=== PATIENT | female | born 1980 | race Caucasian/White ===

== ENCOUNTER 2018-11-04 16:28 | Observation (INO) | payer OTHER ==
[2018-11-04] MEDS ORDERED: LACTATED RINGERS 1,000 ML IV SCH (17:00)
--- NOTE | 2018-11-04 19:53 | Ultrasound Report ---
ULTRASOUND BIOPHYSICAL PROFILE INDICATION: well being. COMPARISON: Limited OB ultrasound same day FINDINGS: BREATHING MOVEMENT = 2 GROSS BODY MOVEMENT = 2 TONE = 2 QUALITATIVE AMNIOTIC FLUID VOLUME = 2 TOTAL BIOPHYSICAL SCORE = 12/01 AMNIOTIC FLUID INDEX (cm) = 9.2 PRESENTATION: Cephalic. HEART RATE (beats per minute): 178 IMPRESSION: 1. biophysical profile = 12/01 Signer Name: Josemanuel Sanchez MD Signed: 11/04/2018 7:49 PM Workstation Name: [email or web address]
--- NOTE | 2018-11-04 20:07 | Ultrasound Report ---
ULTRASOUND OBSTETRIC limited third trimester INDICATION / CLINICAL INFORMATION: EZEQUIEL. TECHNIQUE: Transabdominal. COMPARISON: None available. FINDINGS: There is a single intrauterine . Heart Rate: 178 beats per minute. Position: cephalic. Placenta: Fundal and free of the os. Amniotic Fluid Volume: normal Amniotic Fluid Index (EZEQUIEL) in cm (if calculated): 9.2. Maternal Adnexa: Not visualized IMPRESSION: 1. Single, living intrauterine with normal EZEQUIEL Signer Name: Josemanuel Sanchez MD Signed: 11/04/2018 8:02 PM Workstation Name: [facility]
[2018-11-04 20:23] LABS: Hematocrit 33.8 % (30.3-42.9); Hemoglobin 11.2 gm/dl (10.1-14.3); Mean Corpuscular HGB Conc 33 % (30-34); Mean Corpuscular Volume 83 fl (79-97); Platelet Count 150 K/mm3 (140-440); Red Blood Count 4.09 M/mm3 (3.65-5.03); Red Cell Distribution Width 16.2 % (13.2-15.2)
--- NOTE | 2018-11-04 21:04 | History and Physical Report ---
History of Present Illness Date of examination: 11/04/18 Date of admission: 11/04/18 19:15 Chief complaint: Sent from office for observation due to tachycardia. History of present illness: 38 year old sent from office to L&D for observation due to tachycardia. Patient reports active movement. Patient denies vaginal bleeding, leaking of fluid, or foul smelling discharge. Patient reports cough for past 4 days. Denies chest pain or shortness of breath. Patient received care at [facility] and records are available. LMP 02/15/18. EDC 11/22/18. significant for the following: Advanced maternal age (normal quad screen), anemia (supplemented with iron), rubella nonimmune, previous section, gestational diabetes (diet controlled), GBS positive. labs are as follows: O+, antibody screen negative, rubella non-immune, RPR nonreactive, HIV negative, hepatitis B surface antigen negative, hemoglobin electrophoresis AA, chlamydia negative, gonorrhea negative, quad screen negative, 1 hour sugar test 179, 3 hour OGTT 100/206/166/153, GBS positive. Past History Past Medical History: no pertinent history Past Surgical History: section, other (left salpingectomy) [employer] History: denies: chlamydia, gonorrhea, hepatitis B, hepatitis C, herpes, HIV, syphilis, trichomonas Family/Genetic History: diabetes Social history: lives with family, full code. denies: smoking, alcohol abuse, prescription drug abuse, IV drug use - Obstetrical History Expected Date of Delivery: 11/22/18 Actual Gestation: 37 Week(s) 3 Day(s) : 2 Para: 1 Hx # Term Pregnancies: 1 Number of Pregnancies: 0 Spontaneous Abortions: 0 Induced : 0 Number of Living Children: 1 Medications and Allergies Allergies Allergy/AdvReac Type Severity Reaction Status Date / Time No Known Allergies Allergy Verified 11/04/18 16:49 Active Meds: Active Medications Lactated Ringer's (Lactated Ringers) 1,000 mls @ 150 mls/hr IV DIRECT SAADIA Review of Systems All systems: negative (cough for past 4 days) - Vital Signs Vital signs: Vital Signs Temp Pulse Resp BP 98.7 F 116 H 18 124/69 11/04/18 17:31 11/04/18 17:31 11/04/18 17:31 11/04/18 17:31 Temp Pulse Resp BP Pulse Ox 98.7 F 130 H 18 119/63 11/04/18 17:31 11/04/18 20:50 11/04/18 17:31 11/04/18 20:50 BPP 8/8 - Physical Exam Cardiovascular: Regular rate, Normal S1, Normal S2 Lungs: Positive: Clear to auscultation Abdomen: Positive: normal appearance, soft, tenderness (bilateral lower quadrants mild tenderness), normal bowel sounds. Negative: distention, guarding , rigidity Genitourinary (Female): Positive: normal external genitalia, normal perenium. Negative: perineal/vulvar lesions Vagina: Positive: normal moisture Uterus: Positive: enlarged Anus/Rectum: Positive: normal perianal skin Extremities: Positive: normal. Negative: tenderness, edema - Obstetrical FHR: category 2 FHR comments: tachycardia Uterine Contraction Monitor Mode: External Cervical Dilatation: 0.5 Cervical Effacement Percentage: 40 station: -3 Uterine Contraction Pattern: Irregular Uterine Contraction Intensity: Mild Results Result Diagrams: 11/04/18 19:52 11/04/18 20:47 Abnormal lab results 11/04/18 Range/Units 19:52 WBC 12.8 H (4.5-11.0) K/mm3 MCH 27 L (28-32) pg RDW 16.2 H (13.2-15.2) % All other labs normal. Assessment and Plan A: at 37 weeks, 3 days gestation. tachycardia. Maternal tachycardia. GBS positive. History of previous section. P: Admit. Labs. Continuous EFM. Consulted with Dr. Meadows re: this patient. Dr. Meadows requests that hospitalist see the patient re: maternal tachycardia. Reviewed labs and FHR tracing with Dr. Meadows. Hospitalist consult put in.
[2018-11-04 21:13] LABS: Basophils % (Manual) 0 % (0.0-1.8); Eosinophils % (Manual) 0 % (0.0-4.3); RBC Morphology Normal; Total Cells Counted 100
[2018-11-04 21:34] LABS: Alanine Aminotransferase 7 units/L (7-56); Albumin 3.4 g/dL (3.9-5); BUN/Creatinine Ratio 13; Blood Urea Nitrogen 5 mg/dL (7-17); Calcium 8.8 mg/dL (8.4-10.2); Hemolysis Index 4
[2018-11-04] MEDS ORDERED: LOPRESSOR PO SCH (23:00)
--- NOTE | 2018-11-04 23:49 | Consultation ---
<FELIZ WOODRUFF - Last Filed: 11/05/18 06:59> History of Present Illness - Reason for Consult Consult date: 11/04/18 Tachycardia evaluation Requesting physician: DAYA SIMMONS - History of Present Illness Pt is a 38 year old who was sent to the hospital by her OB for observation due to tachycardia. Patient heart rate was also found to be elevated on admission. She reports cough for past 4 day, sore thoat, she denies any fever or chills, denies chest pain, denies diaphoresis, denies nausea, denies vomiting. Pt denies reports active movement, denies vaginal bleeding, denies leaking of fluid, denies abdominal pain, denies SOB. Pt states that has been following with with [facility] and had received care. Pt was seen in bed A&O, mild distress due to , no SOB was note, no c/o pain or discomfort except for sore throat. Past History Past Medical History: No medical history, diabetes (Gestational diabetes) Past Surgical History: (prior ) Social history: no significant social history, lives with family, full code Family history: no significant family history Medications and Allergies Allergies Allergy/AdvReac Type Severity Reaction Status Date / Time No Known Allergies Allergy Verified 11/09/18 16:47 Active Meds: Active Medications Benzonatate (Tessalon Perles) 100 mg PO Q8HR SAADIA Lactated Ringer's (Lactated Ringers) 1,000 mls @ 150 mls/hr IV DIRECT SAADIA Last Admin: 11/04/18 21:00 Dose: 125 mls/hr Documented by: Metoprolol Tartrate (Lopressor) 25 mg PO BID SAADIA Review of Systems All systems: negative Exam - Constitutional Vitals: Temp Pulse Resp BP Pulse Ox 98.7 F 126 H 18 119/64 11/04/18 17:31 11/04/18 22:51 11/04/18 17:31 11/04/18 22:51 General appearance: Present: no acute distress - EENT ENT: hearing intact - Neck Neck: Present: normal ROM - Respiratory Respiratory effort: normal Respiratory: bilateral: CTA - Cardiovascular Rhythm: regular Heart Sounds: Present: S1 & S2 - Extremities Extremities: no ischemia, No edema Peripheral Pulses: within normal limits - Abdominal General gastrointestinal: Present: non-tender, other (37 weeks 3 days and intauterine ) - Rectal Rectal Exam: deferred Results - Labs CBC & Chem 7: 11/04/18 19:52 11/04/18 20:47 Labs: Abnormal lab results 11/04/18 11/04/18 Range/Units 19:52 20:47 WBC 12.8 H (4.5-11.0) K/mm3 MCH 27 L (28-32) pg RDW 16.2 H (13.2-15.2) % Seg Neuts % (Manual) 71.0 H (40.0-70.0) % Monocytes % (Manual) 13.0 H (0.0-7.3) % Seg Neutrophils # Man 9.1 H (1.8-7.7) K/mm3 Monocytes # (Manual) 1.7 H (0.0-0.8) K/mm3 Potassium 3.5 L (3.6-5.0) mmol/L Carbon Dioxide 20 L (22-30) mmol/L BUN 5 L (7-17) mg/dL Creatinine 0.4 L (0.7-1.2) mg/dL Glucose 152 H (65-100) mg/dL Total Protein 6.1 L (6.3-8.2) g/dL Albumin 3.4 L (3.9-5) g/dL Assessment and Plan 1. 37 weeks 3 days IUP 2. tachycardia 3. Maternal tachycardia 4. Acute cough 5. h/o Previous 6. Possible dehydration Plan: TSH was reviewed WNL IV fluid for hydration Tessalon perle for cough Lopressor 25 twice a day for tachycardia Continue to monitor heart rate Further recommendation based on hospital course <GLORIA SHERWOOD - Last Filed: 11/18/18 18:56> Exam - Constitutional Vitals: Temp Pulse Resp BP Pulse Ox 98.9 F 116 H 20 126/75 11/05/18 18:30 11/05/18 17:44 11/05/18 18:30 11/05/18 17:44 Results - Labs CBC & Chem 7: 11/04/18 19:52 11/04/18 20:47 Assessment and Plan I personally discussed the patient with the LEAD TELLER-C. I agree with the above documentations
[2018-11-05] MEDS: TESSALON PERLES PO SCH ×2 (00:57→07:58)
[2018-11-05 11:28] LABS: Bacteria,Urine 2+ /HPF (Negative); Bilirubin,Urine NEG (Negative); Blood,Urine NEG (Negative); Color,Urine Straw (Yellow); Mucus,Urine FEW /HPF; Protein,Urine <15 mg/dL mg/dL (Negative); Urobilinogen,Urine < 2.0 mg/dL (<2.0)
--- NOTE | 2018-11-05 11:36 | Progress Note ---
Assessment and Plan Assessment and plan: 1. 37 weeks 3 days IUP 2. tachycardia 3. Maternal tachycardia 4. Acute cough 5. h/o Previous 6. Possible dehydration Plan: Check echocardiogram. TSH was reviewed WNL Consider checking d-dimer levels and cardiology consultation if tachycardia worsens. IV fluid for hydration Tessalon perle for cough Continued Lopressor 25 twice a day for tachycardia Continue to monitor heart rate Further recommendation based on hospital course History Interval history: No new issues overnight. Patient denies chest pain. Hospitalist Physical - Constitutional Vitals: Temp Pulse Resp BP Pulse Ox 98.7 F 110 H 18 114/59 11/04/18 17:31 11/05/18 10:46 11/04/18 17:31 11/05/18 10:46 General appearance: Present: no acute distress - EENT Eyes: Present: PERRL, EOM intact ENT: hearing intact, clear oral mucosa, dentition normal - Neck Neck: Present: supple, normal ROM - Respiratory Respiratory effort: normal Respiratory: bilateral: CTA - Cardiovascular Rhythm: regular Heart Sounds: Present: S1 & S2. Absent: gallop, rub - Extremities Extremities: no ischemia, No edema, Full ROM - Abdominal General gastrointestinal: soft, non-tender, non-distended, normal bowel sounds - Integumentary Integumentary: Present: clear, warm, dry - Neurologic Neurologic: CNII-XII intact, moves all extremities Results - Labs CBC & Chem 7: 11/04/18 19:52 11/04/18 20:47 Labs: Laboratory Last Values WBC 12.8 K/mm3 (4.5-11.0) H 11/04/18 19:52 RBC 4.09 M/mm3 (3.65-5.03) 11/04/18 19:52 Hgb 11.2 gm/dl (10.1-14.3) 11/04/18 19:52 Hct 33.8 % (30.3-42.9) 11/04/18 19:52 MCV 83 fl (79-97) 11/04/18 19:52 MCH 27 pg (28-32) L 11/04/18 19:52 MCHC 33 % (30-34) 11/04/18 19:52 RDW 16.2 % (13.2-15.2) H 07/12/19 19:52 Plt Count 150 K/mm3 (140-440) 11/04/18 19:52 Add Manual Diff Complete 11/04/18 19:52 Total Counted 100 11/04/18 19:52 Seg Neuts % (Manual) 71.0 % (40.0-70.0) H 11/04/18 19:52 0 % 11/04/18 19:52 16.0 % (13.4-35.0) 11/04/18 19:52 Reactive Lymphs % (Man) 0 % 11/04/18 19:52 13.0 % (0.0-7.3) H 11/04/18 19:52 0 % (0.0-4.3) 11/04/18 19:52 0 % (0.0-1.8) 11/04/18 19:52 0 % 11/04/18 19:52 0 % 11/04/18 19:52 0 % 11/04/18 19:52 0 % 11/04/18 19:52 Nucleated RBC % Not Reportable 11/04/18 19:52 Seg Neutrophils # Man 9.1 K/mm3 (1.8-7.7) H 11/04/18 19:52 Band Neutrophils # 0.0 K/mm3 11/04/18 19:52 2.0 K/mm3 (1.2-5.4) 11/04/18 19:52 Abs React Lymphs (Man) 0.0 K/mm3 11/04/18 19:52 1.7 K/mm3 (0.0-0.8) H 11/04/18 19:52 0.0 K/mm3 (0.0-0.4) 11/04/18 19:52 0.0 K/mm3 (0.0-0.1) 11/04/18 19:52 0.0 K/mm3 11/04/18 19:52 0.0 K/mm3 11/04/18 19:52 0.0 K/mm3 11/04/18 19:52 Blast Cells # 0.0 K/mm3 11/04/18 19:52 WBC Morphology Not Reportable 11/04/18 19:52 Hypersegmented Neuts Not Reportable 11/04/18 19:52 Hyposegmented Neuts Not Reportable 11/04/18 19:52 Hypogranular Neuts Not Reportable 11/04/18 19:52 Not Reportable 11/04/18 19:52 Not Reportable 11/04/18 19:52 Not Reportable 11/04/18 19:52 Not Reportable 11/04/18 19:52 Not Reportable 11/04/18 19:52 Not Reportable 11/04/18 19:52 Not Reportable 11/04/18 19:52 Not Reportable 11/04/18 19:52 Plt Clumps, EDTA Not Reportable 11/04/18 19:52 Not Reportable 11/04/18 19:52 Not Reportable 11/04/18 19:52 Not Reportable 11/04/18 19:52 Plt Morphology Comment Not Reportable 11/04/18 19:52 RBC Morphology Normal 11/04/18 19:52 Dimorphic RBCs Not Reportable 11/04/18 19:52 Not Reportable 11/04/18 19:52 Not Reportable 11/04/18 19:52 Not Reportable 11/04/18 19:52 Not Reportable 11/04/18 19:52 Not Reportable 11/04/18 19:52 Not Reportable 11/04/18 19:52 Not Reportable 11/04/18 19:52 Not Reportable 11/04/18 19:52 Not Reportable 11/04/18 19:52 Not Reportable 11/04/18 19:52 Not Reportable 11/04/18 19:52 Not Reportable 11/04/18 19:52 Not Reportable 11/04/18 19:52 Not Reportable 11/04/18 19:52 Not Reportable 11/04/18 19:52 Not Reportable 11/04/18 19:52 Not Reportable 11/04/18 19:52 Not Reportable 11/04/18 19:52 Not Reportable 11/04/18 19:52 Acanthocytes (Spur) Not Reportable 11/04/18 19:52 Rouleaux Not Reportable 11/04/18 19:52 Not Reportable 11/04/18 19:52 Not Reportable 11/04/18 19:52 Not Reportable 11/04/18 19:52 Not Reportable 11/04/18 19:52 Hem Pathologist Commnt No 11/04/18 19:52 Sodium 139 mmol/L (137-145) 11/04/18 20:47 Potassium 3.5 mmol/L (3.6-5.0) L 11/04/18 20:47 Chloride 105.4 mmol/L (98-107) 11/04/18 20:47 Carbon Dioxide 20 mmol/L (22-30) L 11/04/18 20:47 17 mmol/L 11/04/18 20:47 BUN 5 mg/dL (7-17) L 11/04/18 20:47 0.4 mg/dL (0.7-1.2) L 11/04/18 20:47 Estimated GFR > 60 ml/min 11/04/18 20:47 13 % 11/04/18 20:47 Glucose 152 mg/dL (65-100) H 11/04/18 20:47 5.2 % (4-6) 11/04/18 20:53 Calcium 8.8 mg/dL (8.4-10.2) 11/04/18 20:47 0.40 mg/dL (0.1-1.2) 11/04/18 20:47 AST 13 units/L (5-40) 11/04/18 20:47 ALT 7 units/L (7-56) 11/04/18 20:47 86 units/L (35-129) 11/04/18 20:47 6.1 g/dL (6.3-8.2) L 11/04/18 20:47 3.4 g/dL (3.9-5) L 11/04/18 20:47 1.3 % 11/04/18 20:47 TSH 1.680 mlU/mL (0.270-4.200) 11/04/18 20:53 Free T4 1.10 ng/dL (0.76-1.46) 11/04/18 20:53 Straw (Yellow) 11/05/18 11:04 Clear (Clear) 11/05/18 11:04 7.0 (5.0-7.0) 11/05/18 11:04 Ur Specific [place] 1.009 (1.003-1.030) 11/05/18 11:04 <15 mg/dl mg/dL (Negative) 11/05/18 11:04 Neg mg/dL (Negative) 11/05/18 11:04 20 mg/dL (Negative) 11/05/18 11:04 Neg (Negative) 11/05/18 11:04 Neg (Negative) 11/05/18 11:04 Neg (Negative) 11/05/18 11:04 < 2.0 mg/dL (<2.0) 11/05/18 11:04 Ur Leukocyte Esterase Tr (Negative) 11/05/18 11:04 1.0 /HPF (0.0-6.0) 11/05/18 11:04 3.0 /HPF (0.0-6.0) 11/05/18 11:04 U Epithel Cells (Auto) 1.0 /HPF (0-13.0) 11/05/18 11:04 2+ /HPF (Negative) 11/05/18 11:04 Few /HPF 11/05/18 11:04 Blood Type O POSITIVE 11/04/18 19:52 Antibody Screen Negative 11/04/18 19:52 Active Medications - Current Medications Current Medications: Generic Name Dose Route Start Last Admin Trade Name Daleq PRN Reason Stop Dose Admin Benzonatate 100 mg 11/04/18 23:00 11/05/18 07:58 Tessalon Perles PO 100 mg Q8HR SAADIA Administration Lactated Ringer's 1,000 mls @ 150 mls/hr 11/04/18 17:00 11/04/18 21:00 Lactated Ringers IV 125 mls/hr DIRECT SAADIA Administration Metoprolol Tartrate 25 mg 11/04/18 23:00 11/05/18 00:58 Lopressor PO 25 mg BID SAADIA Administration
[2018-11-05 11:38] LABS: Amphetamine Screen,Urine PRESUMPTIVE NEGATIVE; Benzodiazepines Screen,Urine PRESUMPTIVE NEGATIVE; Cannabinoid Screen,Urine PRESUMPTIVE NEGATIVE; Cocaine Screen,Urine PRESUMPTIVE NEGATIVE; Methadone Screen,Urine PRESUMPTIVE NEGATIVE; Opiate Screen,Urine PRESUMPTIVE NEGATIVE
--- NOTE | 2018-11-05 12:01 | Progress Note ---
Assessment and Plan A: at 37 4/7 weeks gestation. Maternal tachycardia. tachycardia resolved (Category 1 heart rate tracing). P: EKG, d-dimer, cardiology consult. Consulted with Dr. Meadows re: this patient and he states he is in agreement with above plan of care. Subjective - Subjective Date of service: 11/05/18 Principal diagnosis: at 37 4/7 weeks gestation; maternal and tachycardia Interval history: Patient was observed overnight due to maternal and tachycardia. tachycardia has resolved. Maternal heart rate is in low hundreds now (was 120- 130 last night). Patient reports active movement. Patient denies vaginal bleeding, leaking of fluid, or regular contractions. Being followed by hospitalist who recommended EKG, d-dimer, and cardiology consult. These are pending currently. Patient reports: movement normal, contractions, no new complaints, no loss of fluid, no vaginal bleeding Objective - Vital Signs Vital Signs: Vital Signs - 12hr 11/05/18 11/05/18 11/05/18 00:50 00:58 01:50 Temperature Pulse Rate 109 H 109 H 96 H Respiratory Rate Blood Pressure 107/62 107/62 110/70 11/05/18 11/05/18 11/05/18 02:50 03:50 04:50 Temperature Pulse Rate 95 H 97 H 97 H Respiratory Rate Blood Pressure 99/54 110/66 102/55 11/05/18 11/05/18 11/05/18 07:46 07:48 08:46 Temperature 97.9 F Pulse Rate 100 H 102 H Respiratory 18 Rate Blood Pressure 117/65 119/69 11/05/18 11/05/18 11/05/18 09:46 10:46 11:46 Temperature Pulse Rate 112 H 110 H 110 H Respiratory Rate Blood Pressure 118/65 114/59 106/60 - Exam Cardiovascular: Regular rate, Normal S1, Normal S2 Lungs: Clear to auscultation Abdomen: Present: normal appearance, soft. Absent: distention, tenderness, guarding, rigidity Uterus: Present: fundal height above umbilicus FHR: category 1 Uterine Contraction Monitor Mode: External Uterine Contraction Pattern: Irregular Uterine Contraction Intensity: Mild Extremities: normal - Labs Labs: Abnormal Labs 11/04/18 11/04/18 19:52 20:47 WBC 12.8 H MCH 27 L RDW 16.2 H Seg Neuts % (Manual) 71.0 H Monocytes % (Manual) 13.0 H Seg Neutrophils # Man 9.1 H Monocytes # (Manual) 1.7 H Potassium 3.5 L Carbon Dioxide 20 L BUN 5 L Creatinine 0.4 L Glucose 152 H Total Protein 6.1 L Albumin 3.4 L Laboratory Results - last 24 hr 11/04/18 11/04/18 11/04/18 19:52 19:52 20:47 WBC 12.8 H RBC 4.09 Hgb 11.2 Hct 33.8 MCV 83 MCH 27 L MCHC 33 RDW 16.2 H Plt Count 150 Add Manual Diff Complete Total Counted 100 Seg Neuts % (Manual) 71.0 H Band Neutrophils % 0 Lymphocytes % (Manual) 16.0 Reactive Lymphs % (Man) 0 Monocytes % (Manual) 13.0 H Eosinophils % (Manual) 0 Basophils % (Manual) 0 Metamyelocytes % 0 Myelocytes % 0 Promyelocytes % 0 Blast Cells % 0 Nucleated RBC % Not Reportable Seg Neutrophils # Man 9.1 H Band Neutrophils # 0.0 Lymphocytes # (Manual) 2.0 Abs React Lymphs (Man) 0.0 Monocytes # (Manual) 1.7 H Eosinophils # (Manual) 0.0 Basophils # (Manual) 0.0 Metamyelocytes # 0.0 Myelocytes # 0.0 Promyelocytes # 0.0 Blast Cells # 0.0 WBC Morphology Not Reportable Hypersegmented Neuts Not Reportable Hyposegmented Neuts Not Reportable Hypogranular Neuts Not Reportable Smudge Cells Not Reportable Toxic Granulation Not Reportable Toxic Vacuolation Not Reportable Dohle Bodies Not Reportable Pelger-Huet Anomaly Not Reportable Susan Rods Not Reportable Platelet Estimate Not Reportable Clumped Platelets Not Reportable Plt Clumps, EDTA Not Reportable Large Platelets Not Reportable Giant Platelets Not Reportable Platelet Satelliting Not Reportable Plt Morphology Comment Not Reportable RBC Morphology Normal Dimorphic RBCs Not Reportable Polychromasia Not Reportable Hypochromasia Not Reportable Poikilocytosis Not Reportable Anisocytosis Not Reportable Microcytosis Not Reportable Macrocytosis Not Reportable Spherocytes Not Reportable Pappenheimer Bodies Not Reportable Sickle Cells Not Reportable Target Cells Not Reportable Tear Drop Cells Not Reportable Ovalocytes Not Reportable Helmet Cells Not Reportable Diaz-Leslie Bodies Not Reportable [place] Rings Not Reportable Germaine Cells Not Reportable Bite Cells Not Reportable Crenated Cell Not Reportable Elliptocytes Not Reportable Acanthocytes (Spur) Not Reportable Rouleaux Not Reportable Hemoglobin C Crystals Not Reportable Schistocytes Not Reportable Malaria parasites Not Reportable Alfonso Bodies Not Reportable Hem Pathologist Commnt No Sodium 139 Potassium 3.5 L Chloride 105.4 Carbon Dioxide 20 L Anion Gap 17 BUN 5 L Creatinine 0.4 L Estimated GFR > 60 BUN/Creatinine Ratio 13 Glucose 152 H Hemoglobin A1c Calcium 8.8 Total Bilirubin 0.40 AST 13 ALT 7 Alkaline Phosphatase 86 Total Protein 6.1 L Albumin 3.4 L Albumin/Globulin Ratio 1.3 TSH Free T4 Urine Color Urine Turbidity Urine pH Ur Specific [place] Urine Protein Urine Glucose (UA) Urine Ketones Urine Blood Urine Nitrite Urine Bilirubin Urine Urobilinogen Ur Leukocyte Esterase Urine WBC (Auto) Urine RBC (Auto) U Epithel Cells (Auto) Urine Bacteria (Auto) Urine Mucus Urine Opiates Screen Urine Methadone Screen Ur Barbiturates Screen Ur Phencyclidine Scrn Ur Amphetamines Screen U Benzodiazepines Scrn Urine Cocaine Screen U Marijuana (THC) Screen Drugs of Abuse Note Blood Type O POSITIVE Antibody Screen Negative 11/04/18 11/04/18 11/04/18 20:53 20:53 20:53 WBC RBC Hgb Hct MCV MCH MCHC RDW Plt Count Add Manual Diff Total Counted Seg Neuts % (Manual) Band Neutrophils % Lymphocytes % (Manual) Reactive Lymphs % (Man) Monocytes % (Manual) Eosinophils % (Manual) Basophils % (Manual) Metamyelocytes % Myelocytes % Promyelocytes % Blast Cells % Nucleated RBC % Seg Neutrophils # Man Band Neutrophils # Lymphocytes # (Manual) Abs React Lymphs (Man) Monocytes # (Manual) Eosinophils # (Manual) Basophils # (Manual) Metamyelocytes # Myelocytes # Promyelocytes # Blast Cells # WBC Morphology Hypersegmented Neuts Hyposegmented Neuts Hypogranular Neuts Smudge Cells Toxic Granulation Toxic Vacuolation Dohle Bodies Pelger-Huet Anomaly Susan Rods Platelet Estimate Clumped Platelets Plt Clumps, EDTA Large Platelets Giant Platelets Platelet Satelliting Plt Morphology Comment RBC Morphology Dimorphic RBCs Polychromasia Hypochromasia Poikilocytosis Anisocytosis Microcytosis Macrocytosis Spherocytes Pappenheimer Bodies Sickle Cells Target Cells Tear Drop Cells Ovalocytes Helmet Cells Diaz-Leslie Bodies [place] Rings [place] Cells Bite Cells Crenated Cell Elliptocytes Acanthocytes (Spur) Rouleaux Hemoglobin C Crystals Schistocytes Malaria parasites Alfonso Bodies Hem Pathologist Commnt Sodium Potassium Chloride Carbon Dioxide Anion Gap BUN Creatinine Estimated GFR BUN/Creatinine Ratio Glucose Hemoglobin A1c 5.2 Calcium Total Bilirubin AST ALT Alkaline Phosphatase Total Protein Albumin Albumin/Globulin Ratio TSH 1.680 Free T4 1.10 Urine Color Urine Turbidity Urine pH Ur Specific [place] Urine Protein Urine Glucose (UA) Urine Ketones Urine Blood Urine Nitrite Urine Bilirubin Urine Urobilinogen Ur Leukocyte Esterase Urine WBC (Auto) Urine RBC (Auto) U Epithel Cells (Auto) Urine Bacteria (Auto) Urine Mucus Urine Opiates Screen Urine Methadone Screen Ur Barbiturates Screen Ur Phencyclidine Scrn Ur Amphetamines Screen U Benzodiazepines Scrn Urine Cocaine Screen U Marijuana (THC) Screen Drugs of Abuse Note Blood Type Antibody Screen 11/05/18 11/05/18 11:04 11:04 WBC RBC Hgb Hct MCV MCH MCHC RDW Plt Count Add Manual Diff Total Counted Seg Neuts % (Manual) Band Neutrophils % Lymphocytes % (Manual) Reactive Lymphs % (Man) Monocytes % (Manual) Eosinophils % (Manual) Basophils % (Manual) Metamyelocytes % Myelocytes % Promyelocytes % Blast Cells % Nucleated RBC % Seg Neutrophils # Man Band Neutrophils # Lymphocytes # (Manual) Abs React Lymphs (Man) Monocytes # (Manual) Eosinophils # (Manual) Basophils # (Manual) Metamyelocytes # Myelocytes # Promyelocytes # Blast Cells # WBC Morphology Hypersegmented Neuts Hyposegmented Neuts Hypogranular Neuts Smudge Cells Toxic Granulation Toxic Vacuolation Dohle Bodies Pelger-Huet Anomaly Susan Rods Platelet Estimate Clumped Platelets Plt Clumps, EDTA Large Platelets Giant Platelets Platelet Satelliting Plt Morphology Comment RBC Morphology Dimorphic RBCs Polychromasia Hypochromasia Poikilocytosis Anisocytosis Microcytosis Macrocytosis Spherocytes Pappenheimer Bodies Sickle Cells Target Cells Tear Drop Cells Ovalocytes Helmet Cells Diaz-Leslie Bodies [place] Rings Germaine Cells Bite Cells Crenated Cell Elliptocytes Acanthocytes (Spur) Rouleaux Hemoglobin C Crystals Schistocytes Malaria parasites Alfonso Bodies Hem Pathologist Commnt Sodium Potassium Chloride Carbon Dioxide Anion Gap BUN Creatinine Estimated GFR BUN/Creatinine Ratio Glucose Hemoglobin A1c Calcium Total Bilirubin AST ALT Alkaline Phosphatase Total Protein Albumin Albumin/Globulin Ratio TSH Free T4 Urine Color Straw Urine Turbidity Clear Urine pH 7.0 Ur Specific [place] 1.009 Urine Protein <15 mg/dl Urine Glucose (UA) Neg Urine Ketones 20 Urine Blood Neg Urine Nitrite Neg Urine Bilirubin Neg Urine Urobilinogen < 2.0 Ur Leukocyte Esterase Tr Urine WBC (Auto) 1.0 Urine RBC (Auto) 3.0 U Epithel Cells (Auto) 1.0 Urine Bacteria (Auto) 2+ Urine Mucus Few Urine Opiates Screen Presumptive negative Urine Methadone Screen Presumptive negative Ur Barbiturates Screen Presumptive negative Ur Phencyclidine Scrn Presumptive negative Ur Amphetamines Screen Presumptive negative U Benzodiazepines Scrn Presumptive negative Urine Cocaine Screen Presumptive negative U Marijuana (THC) Screen Presumptive negative Drugs of Abuse Note Disclamer Blood Type Antibody Screen
[2018-11-05 17:44] VITALS: BP 126/75
--- NOTE | 2018-11-05 18:10 | Event Note ---
Date: 11/05/18 Patient, at 37+4wks, was brought into the hospital yesterday from the office for tachycardia seen on office NST. Patient herself was doing well and had no complaints. Saw patient today. She remained asymptomatic. She denied shortness of breath, chest pain, coughing, pains in any other body parts including the lower limbs.She denied contractions, vaginal bleeding or leakage of fluids. Her fetus if active. O/E: heart rate now has a baseline rate of 145 bpm. Mom's heart rate is between 110 and 126 bpm. BPP yesterday was 12/01. IMP: tach has resolved. Maternal heart rate is within range for third trimester. Hospitalist's recommendations were noted. D dimer testing is unreliable in and likely to add more clarity to the present status. With an asymptomatic mother and reactive fetus there appears to be no need for further investigations. Plan: Patient was cautioned to report shortness of breath, chest and body pains, coughing, to follow up with both MFM and cardiology as outpatient. She was told to keep kick counts daily and to report any decreases. I discussed this case with MFM Dr. Amezcua.
== END 2018-11-05 18:40 | disposition home or self-care (01) ==
LOC: TRG 16:28 → LD 19:15
PROVIDERS: ADMIT Obstetrics & Gynecology; ATTEND Obstetrics & Gynecology
DX: O76 Abnormality in fetal heart rate and rhythm complicating labor and delivery (principal); O26.893 Other specified pregnancy related conditions, third trimester; R05 Cough; Z98.890 Other specified postprocedural states; Z3A.37 37 weeks gestation of pregnancy
CPT/HCPCS: 36415; 76815; 76819; 80053; 80307; 81001; 82962; 83036; 84439; 84443; 84480; 85007; 85025; 85379; 86850; 86900; 86901; 87086; G0378; J7120

== ENCOUNTER 2018-11-09 16:30 | Outpatient (CLI) | payer OTHER ==
[2018-11-09] MEDS ORDERED: LACTATED RINGERS 1,000 ML IV ONE (16:48)
[2018-11-09 17:03] VITALS: BP 100/55
[2018-11-09 17:15] LABS: Bacteria,Urine 2+ /HPF (Negative); Bilirubin,Urine NEG (Negative); Blood,Urine NEG (Negative); Color,Urine Yellow (Yellow); Hyaline Casts,Urine 1 /LPF; Mucus,Urine FEW /HPF; Protein,Urine <15 mg/dL mg/dL (Negative); Urobilinogen,Urine < 2.0 mg/dL (<2.0)
--- NOTE | 2018-11-09 20:03 | Ultrasound Report ---
Limited obstetrical ultrasound INDICATION: Elevated heart tones noted in office COMPARISON: 11/04/2018 Limited examination shows the intrauterine in a cephalic position. Placenta appears to be m ostly fundal as best can be a mild from these images and is free of the internal cervical os. c ardiac activity was noted with heart rate of 155 bpm. In a very limited examination no obvious abnormalities are detected. Amniotic fluid volume appears qualitatively within normal limits and EZEQUIEL is within normal limits at 11.3 cm. Biophysical profile tone: 2 breathin movements: 2 Amniotic fluid: 2 Total biophysical profile score 8/8, within normal limits Signer Name: Walker Hill MD Signed: 11/09/2018 7:58 PM Workstation Name: [id number]
== END 2018-11-09 19:20 | disposition home or self-care (01) ==
LOC: TRG 16:30
PROVIDERS: ATTEND Obstetrics & Gynecology
DX: O36.8330 Maternal care for abnormalities of the fetal heart rate or rhythm, third trimester, not applicable or unspecified (principal); O09.523 Supervision of elderly multigravida, third trimester; O47.1 False labor at or after 37 completed weeks of gestation; O24.913 Unspecified diabetes mellitus in pregnancy, third trimester; Z3A.38 38 weeks gestation of pregnancy
CPT/HCPCS: 59025; 76815; 76819; 81001; 96360; J7120

== ENCOUNTER 2018-11-16 09:16 | Inpatient (IN) | payer OTHER ==
--- NOTE | 2018-11-16 09:32 | History and Physical Report ---
History of Present Illness Date of examination: 11/16/18 Date of admission: 11/16/18 09:16 Chief complaint: SIUP at 39 weeks and 1 day gestation not in labor. Previous C/section. History of present illness: Patient is a 38 year old , LMP 02/15/18, EDC 11/22/18 at 39 weeks and 1 day gestation who was admitted for elective repeat C/section. She denies any con tractions, fluid leakage or bleeding. She reports good movement. tracing is CAT1. Patient is AMA and had abnormal GTT but declined MFM consult. She wants tubal ligation. Past History Past Medical History: other (anemia, GDM) Past Surgical History: section, other (Left salpingo-oophorectomy) Family/Genetic History: none Social history: no significant social history - Obstetrical History : 2 Para: 1 Number of Living Children: 1 Medications and Allergies Allergies Allergy/AdvReac Type Severity Reaction Status Date / Time No Known Allergies Allergy Verified 11/09/18 16:47 Home Medications Medication Instructions Recorded Confirmed Last Taken Type Vit-Fe Fumar-FA [ 1 tab PO QDAY 11/09/18 11/09/18 11/08/18 09:00 History Vitamin] 1 - Physical Exam Cardiovascular: Normal S1, Normal S2 Lungs: Positive: Clear to auscultation Vulva: both: normal Adnexa: both: normal Deep Tendon Reflex Grade: Normal +2 - Obstetrical FHR: category 1 Uterine Contraction Monitor Mode: External Cervical Dilatation: 0 Cervical Effacement Percentage: 0 station: -3 Uterine Contraction Pattern: Absent Results Result Diagrams: 11/16/18 10:38 All other labs normal. Assessment and Plan - Patient Problems (1) 39 weeks gestation of Current Visit: Yes Status: Acute (2) Previous section Current Visit: Yes Status: Acute Plan to address problem: Admit to labor floor. Routine preop labs. IV hydration. Keep NPO. monitoring. Patient was counselled for repeat C/section and BTL. Risks, benefits, and alternatives of the procedure were discussed in detail with the patient which included but not limited to the risk of infection, hemorrhage requiring blood transfusion, injury to the bowel or bladder and blood vessels, risks of the tubal ligation to fail to prevent which can result in un wanted pregnancies in the future. The patient expressed understanding, her questions were answered, and she gave informed consent. Anesthesia notified. (3) Gestational diabetes Current Visit: Yes Status: Acute Plan to address problem: Patient had declined MFM consult. (4) Anemia Current Visit: Yes Status: Acute Qualifiers: Anemia type: iron deficiency (5) Advanced maternal age (AMA) in Current Visit: Yes Status: Acute Plan to address problem: Patient had declined MM consult.
[2018-11-16] MEDS ORDERED: PITOCin/NS 20 UNIT/1000ML DRIP 20 UNITS/1,000 ML BAG IV SCH ×2 (10:00→16:00)
[2018-11-16] MEDS ORDERED: ANCEF/STERILE WATER 2 GM/20 ML 2 GM/20 ML SYRINGE IV NR (10:00)
[2018-11-16] MEDS ORDERED: BICITRA PO NR (10:00)
[2018-11-16] MEDS ORDERED: PEPCID IV NR (10:00)
[2018-11-16] MEDS ORDERED: REGLAN IV NR (10:00)
[2018-11-16] MEDS: LACTATED RINGERS 1,000 ML IV SCH ×2 (10:45→12:24)
[2018-11-16 10:54] LABS: Basophils % (Auto) 0.2 % (0.0-1.8); Eosinophils # (Auto) 0.1 K/mm3 (0.0-0.4); Eosinophils % (Auto) 0.4 % (0.0-4.3); Hemoglobin 12.3 gm/dl (10.1-14.3); Lymphocytes % (Auto) 16.8 % (13.4-35.0); Mean Corpuscular HGB Conc 33 % (30-34); Mean Corpuscular Volume 82 fl (79-97); Monocytes # (Auto) 1.4 K/mm3 (0.0-0.8); Monocytes % (Auto) 11.4 % (0.0-7.3); Platelet Count 167 K/mm3 (140-440); Red Blood Count 4.54 M/mm3 (3.65-5.03); Red Cell Distribution Width 15.5 % (13.2-15.2)
--- NOTE | 2018-11-16 13:09 | Anesthesia Consultation ---
Anesthesia Consult and Med Hx Date of service: 11/16/18 - Airway Anesthetic Teeth Evaluation: Good ROM Head & Neck: Adequate Mental/Hyoid Distance: Adequate Mallampati Class: Class II Intubation Access Assessment: Probably Good - Pulmonary Exam CTA: Yes - Cardiac Exam Cardiac Exam: RRR - Pre-Operative Health Status ASA Pre-Surgery Classification: ASA3 Proposed Anesthetic Plan: Spinal - Pulmonary Hx Asthma: No COPD: No Hx Pneumonia: No - Cardiovascular System Hx Hypertension: No - Central Nervous System Hx Seizures: No Hx Psychiatric Problems: No - Endocrine Hx Renal Disease: No Hx End Stage Renal Disease: No Hx Non-Insulin Dependent Diabetes: Yes (GDM) Hx Hypothyroidism: No Hx Hyperthyroidism: No - Hematic Hx Anemia: Yes Hx Sickle Cell Disease: No - Other Systems Hx Alcohol Use: No
--- NOTE | 2018-11-16 13:09 | Anesthesia Day of Surgery ---
Anesthesia Day of Surgery - Day of Surgery Patient Examined: Yes Patient H&P Reviewed: Yes Patient is NPO: Yes
[2018-11-16] MEDS ORDERED: METHERGINE IM ONE (15:04)
[2018-11-16] MEDS ORDERED: ZOFRAN ONE (15:51)
[2018-11-16] MEDS ORDERED: TORADOL IV PRN (15:52)
[2018-11-16] MEDS ORDERED: ZOFRAN IV PRN ×2 (15:52→16:15)
[2018-11-16] MEDS ORDERED: SENOKOT PO PRN (15:52)
[2018-11-16] MEDS ORDERED: ANUCORT-HC PR PRN (15:52)
[2018-11-16] MEDS ORDERED: TUCKS PAD TP PRN (15:52)
[2018-11-16] MEDS ORDERED: NARCAN 0.4 MG/1 ML IV PRN ×2 (15:52→16:15)
[2018-11-16] MEDS ORDERED: PHENERGAN PR PRN ×2 (15:52→16:15)
[2018-11-16] MEDS ORDERED: MILK OF MAGNESIA PO PRN (15:52)
[2018-11-16] MEDS ORDERED: LANSINOH TP PRN (15:52)
[2018-11-16] MEDS ORDERED: TYLENOL PO PRN (15:52)
[2018-11-16] MEDS ORDERED: MORPHINE IV PRN ×2 (15:52)
[2018-11-16] MEDS ORDERED: SODIUM CHLORIDE FLUSH SYRINGE 10 ML IV SCH ×2 (16:00→17:00)
--- NOTE | 2018-11-16 16:04 | Operative Report ---
Operative Report Operative Report: Preoperative diagnosis 1. SIUP at 39 weeks and 1 day gestation not in labor. 2. Previous C/section. 3. Unwanted fertility. 4. History of left salpingo-oophorectomy. Postoperative diagnosis: 1. SIUP at 39 weeks and 1 days gestation not in labor. 2. Previous C/section. 3. Unwanted fertility. Procedure: 1. Repeat low-transverse section. 2. Right tubal ligation via Pemoroy method. Surgeon: Dr. Worthy Donor Relations Coordinator: none Anesthesia: spinal. IVF: RL 1 liter EBL: 600 cc Urine: 100 cc clear Complications: none. Intraoperative findings: 1. A female infant found in an GIRMA position, delivered at 2;49 PM, Apgars 8 at 1 minute and 9 at 5 minutes, weight 7 lbs. 9 oz. 2. Absent left fallopian tube and ovary. 3. Normal right fallopian tube and ovary. Procedure details: Risks, benefits, and alternatives of the procedure were discussed in detail with the patient which included but not limited to the risk of infection, hemorrhage requiring blood transfusion, injury to the bowel or bladder and blood vessels, the risks of the tubal ligation to fail to prevent which can result in unwanted pregnancies in the future. The patient expressed understanding, her questions were answered, and she gave informed consent. The patient was taken to the operating room with an IV fluid infusing Ringers lactate. In the operating room, she was placed in a sitting position and given spinal anesthesia. She was then placed in a dorsal supine position with a leftward tilt. Landon catheter in Venodyne boots were placed. The abdomen was washed and she was prepared and draped in usual sterile fashion. After confirming adequate anesthesia, the Pfannenstiel skin incision was made in the lower abdomen about 2 cm above the pubic symphysis using the scalpel. This incision was carried down to the underlying fascia using the Bovie. The fascia was opened bilaterally in a curvilinear fashion using the Bovie. 2 straight Kocker clamps were used to grasp the upper edge of the fascia from which the underlying rectus abdominis muscles was dissected off using the Bovie. A similar procedure was done with the lower edge of the fascia to dissect the underlying uterine muscle. A quick survey of the anatomy revealed a gravid uterus, normal fallopian tubes and ovaries bilaterally. A bladder flap was created. Azar'O retractor was placed in the incision for proper visualization. A low transverse incision was made in the lower uterine segment. There was copious amount of clear amniotic fluids. The was found in an GIRMA position, the head was delivered atraumatically followed by the delivery of the shoulders and the rest of the body at 2:49 PM. The cord was clamped 2 and cut and the infant was handed off to the waiting jewelry maker. The infant was a female, Apgars were 8 at 1 minute and 9 at 5 minutes, weight was 7 pounds and 9 ounces. Cord blood was collected. The placenta was delivered manually and it was complete with a three-vessel cord. The uterine cavity was cleaned of clots and debris using dry lap sponges. The uterine incision was repaired in a running locked fashion using 0 Vicryl sutures. A second layer of imbrication was placed. The gutters were cleaned of clots and debris using dry lap sponges. The right Fallopian tube was grasped with Bridgman clamps and a 2-cm segment was suture ligated using 0 chromic suture. The left fallopian tube was absent due to a previous history of left salpingo-oophorectomy. The right tubal segment was sent to pathology. After confirming adequate hemostasis, the instruments were removed from the abdominal cavity. The rectus muscle was reapproximated in an interrupted fashion using 0 Vicryl sutures. The fascia was closed in a running fashion using 0 Vicryl sutures. The subcutaneous adipose tissue was closed with 2.0 chromic sutures. The skin was closed in a subcutaneous fashion with 4 vicryl on a Ray needle. Sterile dressing was placed. The counts of laps, needles, sponges, and instruments were correct 2. The patient tolerated the procedure well, she was taken to the recovery room in a stable condition.
[2018-11-16] MEDS ORDERED: DILAUDID IV PRN (16:15)
[2018-11-16] MEDS ORDERED: PHENERGAN PO PRN (16:15)
--- NOTE | 2018-11-16 16:15 | Post Anesthesia Evaluation ---
- Post Anesthesia Evaluation Patient Participated: Yes Airway Patent: Yes Stable Respiratory Function: Yes Nausea/Vomiting: No Temp > 96.8F: Yes Pain Manageable: Yes Adequeate Hydration: Yes Anesthesia Complications: No Block Receding Appropriately: Yes
[2018-11-16] MEDS ORDERED: NUBAIN IV PRN (16:16)
[2018-11-16] MEDS ORDERED: D5LR 1,000 ML IV SCH (19:00)
[2018-11-16] MEDS: TORADOL IV PRN (21:34)
[2018-11-17] MEDS: TORADOL IV PRN (05:40)
[2018-11-17 06:25] LABS: Hematocrit 36.4 % (30.3-42.9); Hemoglobin 11.9 gm/dl (10.1-14.3)
--- NOTE | 2018-11-17 10:32 | Progress Note ---
Assessment and Plan A: POD#1 s/p Repeat c/s with Tubal ligation Pain well controlled Stable P: Routine PO/PP orders Encouraged ambulation in room Anticipate discharge home in 24-48 hrs Subjective - Subjective Date of service: 11/17/18 Principal diagnosis: Repeat c/s with Tubal ligation Interval history: See H&P and operative note Patient reports: appetite normal, voiding normally, pain well controlled, flatus, ambulating normally, no bowel movement : doing well, bottle feeding Objective - Vital Signs Latest vital signs: Vital Signs Temp Pulse Resp BP BP Pulse Ox 11/17/18 07:48 97.5 F L 90 16 99/61 97 11/17/18 06:44 97.3 F L 76 16 98/63 97 11/17/18 01:15 97.3 F L 88 18 110/71 98 11/16/18 21:22 98.5 F 89 20 114/66 96 11/16/18 18:31 98.2 F 79 18 103/56 11/16/18 11:40 98.7 F 18 Intake and Output 11/16/18 11/17/18 11/17/18 23:59 07:59 15:59 Output Total 50 1150 700 Balance -50 -1150 -700 Output: Urine 50 1150 700 Indwelling Catheter 50 750 Void 400 700 Other: Total, Output Amount 50 400 700 # Voids Indwelling Catheter 1 Void 1 Weight 190 kg - Exam Breasts: Present: normal Cardiovascular: Present: Regular rate, Normal S1, Normal S2, No murmurs Lungs: Present: Clear to auscultation, Normal air movement Abdomen: Present: normal appearance, soft, tenderness (as expected post-op), normal bowel sounds. Absent: distention Vulva: both: normal Uterus: Present: firm, fundal height at umbilicus Extremities: Present: normal Deep Tendon Reflex Grade: Normal +2 Incision: Present: normal, dressed (Pressure dressing intact, no drainage) - Labs Labs: Abnormal lab results 11/16/18 Range/Units 10:38 WBC 12.0 H (4.5-11.0) K/mm3 MCH 27 L (28-32) pg RDW 15.5 H (13.2-15.2) % Smith % (Auto) 11.4 H (0.0-7.3) % Smith # 1.4 H (0.0-0.8) K/mm3 Seg Neutrophils % 71.2 H (40.0-70.0) % Seg Neutrophils # 8.6 H (1.8-7.7) K/mm3
[2018-11-17] MEDS: PRENATAL VITAMIN PO SCH (10:40)
[2018-11-17] MEDS: FEOSOL PO SCH (10:40)
[2018-11-17] MEDS: PERCOCET 5/325 PO PRN (11:00)
[2018-11-17] MEDS: MYLICON PO PRN ×2 (11:00→21:45)
[2018-11-17] MEDS: IBUPROFEN PO PRN ×2 (11:00→22:49)
[2018-11-18] MEDS ORDERED: MILK OF MAGNESIA PO PRN (05:03)
--- NOTE | 2018-11-18 07:15 | Progress Note ---
Assessment and Plan A: POD#2 s/p Repeat c/s with Tubal ligation Pain well controlled Stable P: Routine PO/PP orders Encouraged ambulation in room Anticipate discharge home in 24-48 hrs Subjective - Subjective Date of service: 11/18/18 Principal diagnosis: POD#2 s/p Repeat c/s with Tubal ligation Interval history: See H&P and operative note Patient reports: appetite normal, voiding normally, pain well controlled, flatus, ambulating normally Provencal: doing well, other (breast/bottle) Objective - Vital Signs Latest vital signs: Vital Signs Temp Pulse Resp BP BP Pulse Ox 11/18/18 01:24 98.5 F 92 H 18 108/70 97 11/17/18 22:49 19 11/17/18 17:38 97.8 F 92 H 18 120/79 94 11/17/18 07:48 97.5 F L 90 16 99/61 97 Intake and Output 11/17/18 11/17/18 11/18/18 15:59 23:59 07:59 Intake Total 1600 1600 480 Output Total 1200 Balance 400 1600 480 Intake: Oral 1600 1600 Intake, Free Water 480 Output: Urine 1200 Void 1200 Other: Total, Intake Amount 800 800 Total, Output Amount 500 Voiding Method Toilet Toilet # Voids 1 1 Void 1 1 1 - Exam Breasts: Present: normal, Cardiovascular: Present: Regular rate, Normal S1, Normal S2, No murmurs Lungs: Present: Clear to auscultation, Normal air movement Abdomen: Present: normal appearance, soft, tenderness (as expected post op), normal bowel sounds. Absent: distention Vulva: both: normal Uterus: Present: firm, fundal height at umbilicus Extremities: Present: normal Deep Tendon Reflex Grade: Normal +2 Incision: Present: normal, dry, dressed (Pressure dressing CDI)
--- NOTE | 2018-11-18 07:17 | Discharge Summary ---
Providers - Providers Date of Admission: 11/16/18 09:16 Date of discharge: 11/19/18 Attending physician: GALEN BREWER MD Primary care physician: GALEN BREWER MD Hospitalization Reason for admission: IUP at term Delivery: Procedure: repeat low transverse Incision: normal, dry, intact complications: none Discharge diagnosis: IUP at term delivered Condition at discharge: Good Disposition: DC-01 TO HOME OR SELFCARE Plan - Discharge Medications Prescriptions: Ibuprofen [Motrin] 800 mg PO Q8HR PRN #30 tablet PRN Reason: Pain, Moderate (4-6) oxyCODONE /ACETAMINOPHEN [Percocet 5/325] 1 tab PO Q4HR #20 tab - Provider Discharge Summary Activity: routine, no sex for 6 weeks, no heavy lifting 4 weeks, no strenuous exercise Diet: routine Instructions: routine Additional instructions: [] Smoking cessation referral if applicable(refer to patient education folder for contact #) [] Refer to [facility] Booklet Call your doctor immediately for: * Fever > 100.5 * Heavy vaginal bleeding ( >1 pad per hour) * Severe persistent headache * Shortness of breath * Reddened, hot, painful area to leg or breast * Drainage or odor from incision. * Keep incision clean and dry at all times and follow doctor's instructions regarding bathing/showering - Follow up plan Follow up: GALEN BREWER MD [Primary Care Provider] - 7 Days
[2018-11-18] MEDS: PRENATAL VITAMIN PO SCH (10:26)
[2018-11-18] MEDS: FEOSOL PO SCH (10:26)
[2018-11-18] MEDS: PERCOCET 5/325 PO PRN (10:57)
[2018-11-18] MEDS: IBUPROFEN PO PRN (10:57)
[2018-11-18 13:53] VITALS: BP 106/62
[2018-11-18] MEDS ORDERED: M-M-R II VACCINE SUB-Q ONE (14:05)
== END 2018-11-18 14:15 | disposition home or self-care (01) | DRG 785 ==
LOC: APU 09:16 → OB 18:34
PROVIDERS: ADMIT Obstetrics & Gynecology; ATTEND Obstetrics & Gynecology
PROC: 10D00Z1 Extraction of Products of Conception, Low, Open Approach (ICD-10-PCS; principal; 2018-11-16)
PROC: 0UB50ZZ Excision of Right Fallopian Tube, Open Approach (ICD-10-PCS; 2018-11-16)
PROC: 3E0234Z Introduction of Serum, Toxoid and Vaccine into Muscle, Percutaneous Approach (ICD-10-PCS; 2018-11-18)
DX: O34.211 Maternal care for low transverse scar from previous cesarean delivery (principal); O24.429 Gestational diabetes mellitus in childbirth, unspecified control; O99.02 Anemia complicating childbirth; D64.9 Anemia, unspecified; Z37.0 Single live birth; Z3A.39 39 weeks gestation of pregnancy; Z23 Encounter for immunization
CPT/HCPCS: 36415; 82962; 85014; 85018; 85025; 86850; 86900; 86901; 88302; 90707; G0378; J0690; J1885; J2210; J2270; J2405; J2590; J2765; J7120; J7121